=== PATIENT | male | born 1960 ===

== ENCOUNTER 2017-06-01 16:46 | Emergency (ER) | payer OTHER ==
[~2017-06-01] VITALS: Ht 162.6 cm; Wt 82.7 kg
[2017-06-01 16:48] VITALS: Ht 162.6 cm; Wt 82.7 kg
--- NOTE | 2017-06-01 16:54 | ERD ---
ER Documentation Chief Complaint Chief Complaint ETOH WITHOUT ANY OTHER COMPLAINTS HPI Patient is a 56-year-old male who complains of gradual onset, constant, moderate atraumatic lumbar pain for 8 days. He was found lying in the bushes intoxicated with alcohol. He acknowledges drinking heavily and being homeless. He denies trauma or other drug use. He denies fever, vomiting, dysuria, abdominal pain. ROS All systems reviewed and are negative except as per history of present illness. Medications Home Meds Active Scripts Cyclobenzaprine Hcl* (Cyclobenzaprine Hcl*) 10 Mg Tablet, 10 MG PO TID, #15 TAB Prov:MIR RUST MD 06/01/17 Ibuprofen* (Motrin*) 600 Mg Tab, 600 MG PO Q8, #20 TAB Prov:MIR RUST MD 06/01/17 Allergies Allergies: Coded Allergies: Unknown: Unable to obtain (Unverified , 06/01/17) PT NOT RESPONSIVE PMhx/Soc Past medical history: None Past surgical history: None Social history: Drinks alcohol daily, denies tobacco or illicit drugs FmHx Family History: No coronary disease, No diabetes Physical Exam Vitals Vital Signs Date Time Temp Pulse Resp B/P Pulse Ox O2 Delivery O2 Flow Rate FiO2 06/01/17 18:17 98.3 78 20 138/74 98 Room Air 06/01/17 16:48 98.7 112 18 134/72 96 Physical Exam Const: Alert, odor of alcohol Head: Atraumatic Eyes: Normal Conjunctiva, No pallor, no icterus ENT: Normal External Ears, Nose and Mouth. Mucous membranes moist Neck: Full range of motion..~ No meningismus. Resp: Clear to auscultation bilaterally, No wheezes, rales Cardio: Regular rate and rhythm, no murmurs Abd: Soft, non tender, non distended. Skin: No petechiae or rashes Back: Tenderness in the lumbar region without step-off, no flank tenderness Ext: No cyanosis, or edema Neur: Awake and alert, Cranial nerves II through XII intact bilaterally, strength and sensation full in 4 extremities. Psych: Normal Mood and Affect Results 24 hrs Current Medications Medications (Trade) Dose Ordered Sig/Riley Route PRN Reason Start Time Stop Time Status Last Admin Dose Admin Ibuprofen (Motrin) 600 mg ONCE ONCE PO 06/01/17 17:00 11/12/17 17:01 DC Procedures/MDM MDM: Patient is a 56-year-old male brought into the ER for being found intoxicated in the bushes. There is no evidence of trauma. The patient complains of low back pain for 8 days. He has no associated neurological symptoms or deficits. X-ray of the lumbar spine is unremarkable. He has no urinary symptoms or CVA tenderness. He was observed in the ER until clinically sober. He was noted to have a steady gait and capacity for self-care. Departure Diagnosis: Primary Impression: Back pain Back pain location: low back pain Chronicity: unspecified Back pain laterality: midline Sciatica presence: without sciatica Qualified Code: M54.5 - Midline low back pain without sciatica, unspecified chronicity Additional Impression: Alcoholic intoxication Complication of substance-induced condition: uncomplicated Qualified Code: F10.920 - Alcoholic intoxication without complication Condition: MIR Campbell MD Jun 01, 2017 16:54
[2017-06-01] MEDS ORDERED: IBUPROFEN 600 MG TAB PO ONE (17:00)
--- NOTE | 2017-06-01 17:38 | RADRPT ---
PROCEDURE: XR Lumbar Spine. CLINICAL INDICATION: Low back pain. TECHNIQUE: Three views of the lumbar spine are available for review COMPARISON: None available FINDINGS: There is straightening of normal lumbar lordosis. Alignment is intact. No acute fracture or disloc ation is seen. The vertebral body heights and disc spaces are preserved. IMPRESSION: 1. No acute fracture or dislocation. 2. Straightening of the normal lumbar lordosis. RPTAT: QQ .Rosie Kong MD, Date Time Electronically viewed and signed by .Rosie Kong MD, on 06/01/2017 17:37 .N/
[2017-06-01] MEDS ORDERED: CYCL-319 PO (17:55)
[2017-06-01] MEDS ORDERED: IBUP-1542 PO (17:55)
[2017-06-01 18:17] VITALS: BP 138/74; PULSE 78; RESP 20; TEMP 98.3
== END 2017-06-01 18:32 | disposition left against medical advice (07) ==
LOC: E/R 16:46
DX: M54.5 Low back pain (principal); R40.2252 Coma scale, best verbal response, oriented, at arrival to emergency department; F10.920 Alcohol use, unspecified with intoxication, uncomplicated; R40.2142 Coma scale, eyes open, spontaneous, at arrival to emergency department; R40.2362 Coma scale, best motor response, obeys commands, at arrival to emergency department
CPT/HCPCS: 72100